=== PATIENT | female | born 1995 | race Caucasian/White ===

== ENCOUNTER 2016-09-17 06:21 | Emergency (ER) | payer OTHER ==
[2016-09-17 06:50] VITALS: BMI 21.2
--- NOTE | 2016-09-17 07:08 | PDOC ---
History of Present Illness - General Chief Complaint: Vaginal Bleeding Stated Complaint: VAGINAL BLEEDING Time Seen by Provider: 09/17/16 07:08 - History of Present Illness Initial Comments: 09/17/16 07:51 CHIEF COMPLAINT: Vaginal bleeding PCP: Dr. Devlin HISTORY OF PRESENT ILLNESS: Patient is a [id number], presented to the ED with the chief complaints of vaginal bleeding since a month and a half. A/c to the patient, she had vaginal bleeding since 2months, stopped for 2 weeks in between but have been continuously bleeding for almost 45 days. She changes 18-20 pads per day and says " the blood comes out like water" and heavy clots while passing urine. Also mentions to have supra pubic pain and lower back pain. Has been feeling very tired and weak especially the past month. Patient says she used to use Depot but used only once in January last year. Last night at home, while walking towards the sofa, she felt lightheaded, had blurring of vision blackouts and fell on the right side. Patient mentions that 20minutes after she fell, she had severe headache, 8/10 in intensity, non radiating, on/off. Denies chest pain, sob, cough, palpitation, nausea or vomiting. Bowel/Bladder habit normal. Sleep/Appetite Normal. Recent Travel: None PAST MEDICAL HISTORY: Asthma PAST SURGICAL HISTORY: As mentioned above Occupation: Works at [employer] Social History: Smoking: Denies Alcohol: Denies Drugs: Denies Family History: Allergies: Seafood. 09/17/16 11:35 Past History - Past Medical History Allergies/Adverse Reactions: Allergies Allergy/AdvReac Type Severity Reaction Status Date / Time SEAFOOD Allergy Itching Uncoded 12/03/15 09:40 Home Medications: Ambulatory Orders NK [No Known Home Medication] 12/03/15 Asthma: Yes Cancer: No Cardiac Disorders: No Diabetes: No HTN: No Seizures: No Thyroid Disease: No - Psycho/Social/Smoking Cessation Hx Anxiety: No Suicidal Ideation: No Smoking Status: No Smoking History: Never smoked Have you smoked in the past 12 months: No Number of Cigarettes Smoked Daily: 0 Hx Alcohol Use: Yes (socially) Drug/Substance Use Hx: No Substance Use Type: None Hx Substance Use Treatment: No Review of Systems - Review of Systems Able to Perform ROS?: Yes Comments:: 09/17/16 07:20 CONSTITUTIONAL: Present: generalized weakness Absent: fever, chills, diaphoresis,malaise, loss of appetite HEENT: Absent: rhinorrhea, nasal congestion, throat pain, throat swelling, difficulty swallowing, mouth swelling, ear pain, eye pain, visual Changes CARDIOVASCULAR: Absent: chest pain, syncope, palpitations, irregular heart rate, lightheadedness , peripheral edema RESPIRATORY: Absent: cough, shortness of breath, dyspnea with exertion, orthopnea, wheezing, stridor, hemoptysis GASTROINTESTINAL: Present: suprapubic pain Absent: abdominal pain, abdominal distension, nausea, vomiting, diarrhea, constipation, melena, hematochezia GENITOURINARY: Present: Vaginal bleeding Absent: dysuria, frequency, urgency, hesitancy, hematuria, flank pain, genital pain MUSCULOSKELETAL: Absent: myalgia, arthralgia, joint swelling SKIN: Absent: rash, itching, pallor HEMATOLOGIC/IMMUNOLOGIC: Absent: easy bleeding, easy bruising, lymphadenopathy, frequent infections ENDOCRINE: Absent: unexplained weight gain, unexplained weight loss, heat intolerance, cold intolerance NEUROLOGIC: Absent: headache, focal weakness or paresthesias, dizziness, unsteady gait, seizure, mental status changes, bladder or bowel incontinence PSYCHIATRIC: Absent: anxiety, depression, suicidal or homicidal ideation, hallucinations. Is the patient limited Grenadian proficient: No *Physical Exam - Vital Signs Last Vital Signs Temp Pulse Resp BP Pulse Ox 102 H 18 118/75 100 09/17/16 06:45 09/17/16 06:45 09/17/16 06:45 09/17/16 06:45 - Physical Exam Comments: 09/17/16 08:43 PE: GENERAL: Awake, alert, and fully oriented, in no acute distress HEAD: No signs of trauma EYES: PERRLA, EOMI, sclera anicteric, conjunctiva clear ENT: Auricles normal inspection, hearing grossly normal, nares patent, oropharynx clear without exudates. Moist mucosa NECK: Normal ROM, supple, no lymphadenopathy, JVD, or masses LUNGS: Breath sounds equal, clear to auscultation bilaterally. No wheezes, and no crackles.. HEART: Regular rate and rhythm, normal S1 and S2, no murmurs, rubs or gallops ABDOMEN: Soft, nontender, normoactive bowel sounds. No guarding, no rebound. No masses Pelvic exam:Vaginal bleeding from vaginal vault, no clots. EXTREMITIES: Normal range of motion, no edema. No clubbing or cyanosis. No cords, erythema, or tenderness NEUROLOGICAL: Cranial nerves II through XII grossly intact. Normal speech, normal gait SKIN: Warm, Dry, normal turgor, no rashes or lesions noted. ED Treatment Course - LABORATORY CBC & Chemistry Diagram: 09/17/16 07:47 09/17/16 07:47 Medical Decision Making - Medical Decision Making 09/17/16 07:08 Patient seen and examine at bed side. Vitals noted, tachycardic. Patient looks comfortable. Physical examination: positive for supra pubic tenderness on palpation and bleeding in vaginal vault. Will order CBC, CMP, UA, Serum test, coags, Transvaginal ultrasound and CT head IV Fluids Differential diagnosis: Dysfunctional uterine bleed; R/O polycystic ovarian disease. R/O brain hemorrahge or acute pathology s/p fall 09/17/16 8:00 Patient reassessed. No complaints 09/17/16 9:00 Labs reviewed, H/H 12.7/38.[address]-No acute pathology Transvaginal Ultrasound: Normal 09/17/16 11:40 Clinical Impression: Dysfunctional uterine bleeding Plan: Transvaginal ultrasound normal Patient advised to go to her Trade Analyst today or tomorrow for hormonal therapy and to return to the ED if symptoms persist or if symptoms get worse. I have discussed in length about the risk of her medical condition. Since H/H is normal, she is not anemic, will not prescribe her any Iron tablets. Illness, Investigation and PLan of care explained to the patient. She verbalized understanding. Case seen and examined with Dr. West. *DC/Admit/Observation/Transfer Diagnosis at time of Disposition: Dysfunctional uterine bleeding - Discharge Dispostion Disposition: HOME Condition at time of disposition: Guarded Admit: No - Patient Instructions Printed Discharge Instructions: Heavy Menstrual Bleeding Additional Instructions: Your blood work looks normal. You do not have anemia, CT head and Transvaginal ultrasound was normal. Please visit your Trade Analyst as soon as possible for further evaluation and she might give you hormonal therapy. Please return to the Emergency Department immediately if your symptoms persist or if you develop any NEW symptoms.
[2016-09-17] MEDS ORDERED: SODIUM CHLORIDE 1,000 ML IV SCH (07:45)
[2016-09-17 08:20] LABS: URINE APPEARANCE CLEAR; URINE BILIRUBIN NEGATIVE (NEGATIVE); URINE COLOR LTYELLOW; URINE GLUCOSE (UA) NEGATIVE (NEGATIVE); URINE KETONE NEGATIVE (NEGATIVE); URINE NITRITE NEGATIVE (NEGATIVE); URINE PROTEIN NEGATIVE (NEGATIVE); URINE UROBILINOGEN NEGATIVE E.U./dl (0.2-1.0)
[2016-09-17 08:22] LABS: BASOPHIL 0.4 % (0-2.0); EOSINOPHIL 1.9 % (0-4.5); MCH 29.4 pg (25.7-33.7); MCHC 32.7 g/dl (32.0-36.0); MEAN CELL VOLUME 89.9 fl (80-96); MEAN PLT VOLUME 10.8 fl (7.5-11.1); NEUTROPHILS 61.3 % (42.8-82.8); PLATELET COUNT 177 K/MM3 (134-434); RDW 13.6 % (11.6-15.6); WHITE BLOOD COUNT 6.5 K/mm3 (4.0-10.0)
[2016-09-17 08:29] LABS: URINE BLOOD 3+ (NEGATIVE); URINE LEUK ESTERASE TRACE (NEGATIVE)
[2016-09-17 08:31] LABS: URINE MUCUS MANY; URINE RBC 60 /hpf (0-3); URINE WBC 10 /hpf (3-5)
[2016-09-17 08:43] LABS: ALBUMIN 4.3 g/dl (3.4-5.0); ANION GAP 11 (8-16); BILIRUBIN,TOTAL 0.3 mg/dL (0.2-1.0); CALCIUM 9.7 mg/dL (8.5-10.1); CO2 26 mmol/L (21-32); CREATININE 0.6 mg/dL (0.55-1.02); GLUCOSE,RANDOM 92 mg/dL (74-106); SGOT/AST 11 U/L (15-37); SGPT/ALT 17 U/L (12-78); TOT PROT 7.7 g/dl (6.4-8.2)
[2016-09-17 08:44] LABS: ALK PHOS 46 U/L (45-117)
[2016-09-17 08:59] LABS: INR 1.1 (0.82-1.09); PROTHROMBIN TIME (PATIENT) 12.1 SEC (9.98-11.88)
[2016-09-17 11:40] VITALS: BP 128/73; PULSE 83; TEMP 98.3
== END 2016-09-17 12:06 | disposition home or self-care (01) ==
LOC: JER 06:21
PROC: 3E0337Z Introduction of Electrolytic and Water Balance Substance into Peripheral Vein, Percutaneous Approach (ICD-10-PCS; principal; 2016-09-17)
DX: N93.8 Other specified abnormal uterine and vaginal bleeding (principal)
CPT/HCPCS: 36415; 70450-TC; 76830-TC; 76856-TC; 80053; 81003; 81015; 84703; 85025; 85610; 86850; 86900; 86901; 99284-25

== ENCOUNTER 2017-06-13 13:09 | Emergency (ER) | payer OTHER ==
[2017-06-13 13:27] VITALS: BP 121/71; PULSE 85; TEMP 97.9; BMI 20.3
[2017-06-13 14:35] LABS: URINE APPEARANCE CLEAR; URINE BILIRUBIN NEGATIVE (NEGATIVE); URINE BLOOD NEGATIVE (NEGATIVE); URINE COLOR LTYELLOW; URINE GLUCOSE (UA) NEGATIVE (NEGATIVE); URINE KETONE NEGATIVE (NEGATIVE); URINE NITRITE NEGATIVE (NEGATIVE); URINE PROTEIN NEGATIVE (NEGATIVE); URINE UROBILINOGEN NEGATIVE mg/dL (0.2-1.0)
--- NOTE | 2017-06-13 15:17 | PDOC ---
History of Present Illness - General Chief Complaint: Headache Stated Complaint: VAGINAL PAIN Time Seen by Provider: 06/13/17 14:48 History Source: Patient Exam Limitations: No Limitations - History of Present Illness Travel History: No Initial Comments: 06/13/17 15:41 Patient came to emergency department for evaluation of chronic headache pain. had a significant injury 2 years ago with a fall and noted cervical spine herniation. has had poor response to ibuprofen for pain relief. is classic headache right sided that is related to musculoskeletal issues of her cervical spine. Also complains of lower abdominal pain and pelvic pain. has had no fever, nausea vomiting or diarrhea constipation. Denies dysuria. Denies any vaginal drainage or itching. States pain is deep and feels is more of a vaginal issue. Has taken no medication for relief of that. Last pelvic exam was greater than a year ago. Has been once, does not think is but could be. Has one partner who is asymptomatic of any drainage or lesions. Timing/Duration: reports: getting worse, changing over time Quality: reports: mild, moderate Pain Radiation: reports: no radiation, other (suprapubic) Activities at Onset: reports: none Past History - Travel Traveled outside of the country in the last 30 days: No Close contact w/someone who was outside of country & ill: No - Past Medical History Allergies/Adverse Reactions: Allergies Allergy/AdvReac Type Severity Reaction Status Date / Time No Known Drug Allergies Allergy Verified 06/13/17 16:44 SEAFOOD Allergy Itching Uncoded 12/03/15 09:40 Home Medications: Ambulatory Orders Alprazolam [Xanax] 0.25 mg PO TID PRN #6 tablet MDD 6 06/13/17 Fluconazole [Diflucan] 150 mg PO ONCE #1 tablet 06/13/17 Omeprazole 20 mg PO DAILY 06/13/17 Asthma: Yes Cancer: No Cardiac Disorders: No COPD: No DVT: No Diabetes: No GI Disorders: Yes (GERD) HTN: No Psychiatric Problems: Yes (Anxiety) Seizures: No Thyroid Disease: No - Immunization History Immunization Up to Date: Yes - Suicide/Smoking/Psychosocial Hx Smoking Status: No Smoking History: Never smoked Have you smoked in the past 12 months: No Number of Cigarettes Smoked Daily: 0 Information on smoking cessation initiated: No Hx Alcohol Use: No Drug/Substance Use Hx: No Substance Use Type: None Hx Substance Use Treatment: No Abd/GI Specific PMHX - Complaint Specific PMHX Diverticulitis: No Gall Bladder Disease: No Review of Systems - Review of Systems Able to Perform ROS?: Yes Is the patient limited Mongolian proficient: Yes Constitutional: Yes: Symptoms Reported, See HPI, Malaise. No: Fever HEENTM: Yes: See HPI. No: Symptoms Reported Respiratory: Yes: See HPI. No: Symptoms reported ABD/GI: Yes: Symptoms Reported, See HPI : Yes: Symptoms Reported, See HPI Integumentary: Yes: See HPI. No: Symptoms Reported All Other Systems: Reviewed and Negative *Physical Exam - Vital Signs Last Vital Signs Temp Pulse Resp BP Pulse Ox 97.9 F 85 16 121/71 97 06/13/17 13:21 06/13/17 13:21 06/13/17 13:21 06/13/17 13:21 06/13/17 13:21 - Physical Exam General Appearance: Yes: Nourished, Appropriately Dressed, Apparent Distress, Mild Distress HEENT: positive: BREANN, Normal ENT Inspection, TMs Normal, Pharynx Normal Neck: positive: Tender, Supple. negative: Lymphadenopathy (R), Lymphadenopathy (L) Female Pelvic Exam: positive: normal external exam, cervical os closed, normal adnexa, normal size ovaries, CMT, discharge (thick white/ non foul smelling ) Gastrointestinal/Abdominal: positive: Normal Bowel Sounds, Soft, Rebound. negative: Tender, Distended, Guarding Musculoskeletal: positive: Normal Inspection. negative: CVA Tenderness Extremity: positive: Normal Capillary Refill Integumentary: positive: Dry, Warm, Pale. negative: Normal Color Neurologic: positive: product evangelist II-XII NML intact, Fully Oriented, Alert, Normal Mood/ Affect, Normal Response, Motor Strength 5/5 ED Treatment Course - ADDITIONAL ORDERS Additional order review: Laboratory Results 06/13/17 06/13/17 14:20 14:20 Urine Color Ltyellow Urine Appearance Clear Urine pH 6.0 Ur Specific Watch[place] 1.018 Urine Protein Negative Urine Glucose (UA) Negative Urine Ketones Negative Urine Blood Negative Urine Nitrite Negative Urine Bilirubin Negative Urine Urobilinogen Negative Urine HCG, Qual Negative Progress Note - Progress Note Progress Note: With further discussion regarding treatment for anticipated STDs, patient denies knowledge or exposure to any. Discussed with treat with ceftriaxone 250mg IM for gonorrhea 1 g of by mouth Zithromax for treatment of presumed chlamydia. We will also provide one dose of Diflucan for candidiasis. But patient became tearful, quiet, with poor eye contact. With further questioning patient revealed that she has been depressed with multiple situational issues in her life this past year and became more tearful and started crying. When I asked if she felt that she might hurt herself or someone else she admitted that she had thought about it multiple times. States her mother is aware of this and wanted her to come to emergency department for evaluation. States lives alone and is not certain she is safe at home. Patient denies current lots however feels depressed and agrees to discussing this issue with her mother present with possible intervention. Medical Decision Making - Medical Decision Making 06/13/17 16:35 LENGTHY DISCUSSION with pATEINT ABD sister Jessica and Mother who have all agreed that Vero will go with sister . She states she feels safe, has agreed and contracted to discuss any recurrent feelings of suicidal ideation with family and if uncomfortable with that agrees to return to emergency department or call 911. Patient states feels much better, given 0.5 mg of by mouth Xanax and understands his to help with anxiety. Prescribed 0.25 mg of Xanax when necessary for 6 tablets. Sister and mother both agree and understand need to return immediately for any discomfort or inability to continue safe zone for Estephania. Dr. Hunter. was notified and understands this plan and will provide follow-up contacts tomorrow for patient 06/13/17 17:07 *DC/Admit/Observation/Transfer Diagnosis at time of Disposition: STD exposure, Depressed affect - Discharge Dispostion Disposition: HOME Condition at time of disposition: Stable Admit: No - Prescriptions Prescriptions: Alprazolam [Xanax] 0.25 mg PO TID PRN #6 tablet MDD 6 PRN Reason: Anxiety Fluconazole [Diflucan] 150 mg PO ONCE #1 tablet - Referrals Referrals: Rahul Gotti [Primary Care Provider] - Quang Hunter MD [Staff Physician] - - Patient Instructions Printed Discharge Instructions: Facts About Sexually Transmitted Infections, DI for Depression -- Adult Additional Instructions: You been treated today with azithromycin 1 g by mouth for treatment of chlamydia You have been treated with Rocephin 250 mg injection for treatment of gonorrhea Always use condoms with the partners Followup with SECURITY BUSINESS ANALYST in one week for reevaluation and retesting. Rest, Avoid strenous activity or exercise until symptoms resolve Avoid Alcohol or drug use May use 1 tab of Xanax 0.25mg every 8 hours for stress/ anxiety or worsen feelings Call for immediate appoinment or evaluation tomorrow with Psychiatry. If feelings of depression or thoughts of injury return , talk with Sister or Mom or call 911, return to ER. - Post Discharge Activity Forms/Work/School Notes: Back to Work - Transfer to Acute Care Facility [facility]
[2017-06-13] MEDS ORDERED: AZITHROMYCIN 1 GM PACKET PO ONE (15:38)
[2017-06-13] MEDS ORDERED: AZITHROMYCIN 500 MG TABLET ONE (15:46)
[2017-06-13] MEDS ORDERED: ALPRAZolam 0.25 MG TABLET PO PRN (16:23)
[2017-06-13] MEDS ORDERED: ALPRAZolam 0.25 MG TABLET PO STA (16:31)
[2017-06-13 20:14] LABS: URINE LEUK ESTERASE Negative (NEGATIVE)
== END 2017-06-13 17:03 | disposition home or self-care (01) ==
LOC: JERFT 13:09
DX: Z20.2 Contact with and (suspected) exposure to infections with a predominantly sexual mode of transmission (principal); F32.9 Major depressive disorder, single episode, unspecified
CPT/HCPCS: 36415; 81003; 84703; 87086; 87491; 87591; 96372; 99281-25

== ENCOUNTER 2018-03-21 20:00 | Emergency (ER) | payer OTHER ==
[2018-03-21 20:14] VITALS: BP 123/65; PULSE 143; TEMP 98.2; BMI 22.1
[2018-03-21] MEDS ORDERED: SODIUM CHLORIDE 0.9% 500 ML INFUS.BAG IV ONE (21:13)
[2018-03-21] MEDS ORDERED: LORazepam 1 MG TABLET PO ONE (21:13)
--- NOTE | 2018-03-21 21:17 | PDOC ---
History of Present Illness - General Chief Complaint: Weakness Stated Complaint: WEAKNESS Time Seen by Provider: 03/21/18 20:50 History Source: Patient Exam Limitations: No Limitations - History of Present Illness Initial Comments: 03/21/18 21:17 Patient is a 23 year old female h/o anxiety c/o numbness and tingling generalized since this evening. She started feeling cramps in her right face and spread to become generally all over her body intermittently which started about 7 PM tonight. States that she is medications for anxiety and based on the advise of her doctor not to drink and take the meds, she did not take he meds today because she she intended to go to a [employer] and to have drinks. States she had 6 beers and smoked hooka. Endorsed prior symptoms of the same 1 month ago. Denies SI or HI. LMP 02/16/18. PMD: Dr. Romero PMHX: as above PSOCHX: occ etoh, neg cig, neg drug ALL: NKDA GENERAL/CONSTITUTIONAL: [No fever or chills. No weakness. No weight change.] HEAD, EYES, EARS, NOSE AND THROAT: [No change in vision. No ear pain or discharge. No sore throat.] CARDIOVASCULAR: [No chest pain or shortness of breath.] RESPIRATORY: [No cough, wheezing, or hemoptysis.] GASTROINTESTINAL: [No nausea, vomiting, diarrhea or constipation. No rectal bleeding.] GENITOURINARY: [No dysuria, frequency, or change in urination.] MUSCULOSKELETAL: [No joint or muscle swelling or pain. No neck or back pain.] SKIN AND BREASTS: [No rash or easy bruising.] NEUROLOGIC: [No headache, vertigo, loss of consciousness, or loss of sensation.] PSYCHIATRIC: [No depression (+) anxiety.] ENDOCRINE: [No increased thirst. No abnormal weight change.] HEMATOLOGIC/LYMPHATIC: [No anemia, easy bleeding, or history of blood clots.] ALLERGIC/IMMUNOLOGIC: [No hives or skin allergy. No latex allergy.] GENERAL: [The patient is awake, alert, and fully oriented, in mild distress.] HEAD: [Normal with no signs of trauma.] EYES: [Pupils equal, round and reactive to light, extraocular movements intact, sclera anicteric, conjunctiva clear.] ENT: [Ears normal, nares patent, oropharynx clear without exudates. Moist mucous membranes.] NECK: [Normal range of motion, supple without lymphadenopathy, JVD, or masses.] LUNGS: [Breath sounds equal, clear to auscultation bilaterally. No wheezes, and no crackles.] HEART: [tachycardic rate and rhythm, normal S1 and S2 without murmur, rub.] ABDOMEN: [Soft, nontender, normoactive bowel sounds. No guarding, no rebound. No masses.] EXTREMITIES: [Normal range of motion, no edema. No clubbing or cyanosis. No cords, erythema, or tenderness.] NEUROLOGICAL: [Cranial nerves II through XII grossly intact. Normal speech, normal gait, cerebellar function intact, nl heal to patel, and finger to nose] PSYCH: [anxious mood, normal affect.] SKIN: [Warm, Dry, normal turgor, no rashes or lesions noted.] Past History - Past Medical History Allergies/Adverse Reactions: Allergies Allergy/AdvReac Type Severity Reaction Status Date / Time No Known Drug Allergies Allergy Verified 03/21/18 20:14 SEAFOOD Allergy Itching Uncoded 03/21/18 20:14 Home Medications: Ambulatory Orders Alprazolam [Xanax] 0.25 mg PO TID PRN #6 tablet MDD 6 06/13/17 Fluconazole [Diflucan] 150 mg PO ONCE #1 tablet 06/13/17 Omeprazole 20 mg PO DAILY 06/13/17 Ondansetron [Zofran Odt -] 4 mg SL TID #12 od.tablet 07/02/17 Asthma: Yes Cancer: No Cardiac Disorders: No COPD: No DVT: No Diabetes: No GI Disorders: Yes (GERD) HTN: No Psychiatric Problems: Yes (Anxiety, panic attacks) Seizures: No Thyroid Disease: No - Immunization History Immunization Up to Date: Yes - Suicide/Smoking/Psychosocial Hx Smoking Status: No Smoking History: Never smoked Have you smoked in the past 12 months: No Number of Cigarettes Smoked Daily: 0 Information on smoking cessation initiated: No Hx Alcohol Use: No Drug/Substance Use Hx: No Substance Use Type: None Hx Substance Use Treatment: No *Physical Exam - Vital Signs Last Vital Signs Temp Pulse Resp BP Pulse Ox 98.2 F 143 H 18 123/65 100 03/21/18 20:12 03/21/18 20:12 03/21/18 20:12 03/21/18 20:12 03/21/18 20:12 Medical Decision Making - Medical Decision Making 03/21/18 21:17 Patient is a 23 year old female h/o anxiety c/o numbness and tingling generalized since this evening. She started feeling cramps in her right face and spread to become generally all over her body intermittently which started about 7 PM tonight.l labs, IVF ekg, ativan 1 mg po reassess 03/21/18 22:42 RN went to look for the patient was not in bed assumed to have eloped. *DC/Admit/Observation/Transfer Diagnosis at time of Disposition: Anxiety - Discharge Dispostion Disposition: ELOPED - Referrals Referrals: Rahul Gotti [Primary Care Provider] - - Patient Instructions - Post Discharge Activity
--- NOTE | 2018-03-21 22:31 | PDOC ---
*Physical Exam - Vital Signs Last Vital Signs Temp Pulse Resp BP Pulse Ox 98.2 F 143 H 18 123/65 99 03/21/18 20:12 03/21/18 20:12 03/21/18 20:12 03/21/18 20:12 03/21/18 20:30 Medical Decision Making - Medical Decision Making 03/21/18 22:28 The patient was seen and evaluated in conjunction with midlevel provider under my direct supervision, ancillary studies were reviewed. I agree with the plan as outlined by GILLIAN Harrison 23 YOF with feeling weird and anxious, after attending [employer]; off meds VS notable for tachycardia, but no fevers. however, prior to evaluation and labs/EKG and repeat VS, pt eloped prior to full examination and evaluation. thus, pt was not seen or evaluated by me and left prior. *DC/Admit/Observation/Transfer Diagnosis at time of Disposition: Anxiety - Discharge Dispostion Disposition: ELOPED - Referrals Referrals: Rahul Gotti [Primary Care Provider] - - Patient Instructions - Post Discharge Activity
== END 2018-03-21 22:51 | disposition left against medical advice (07) ==
LOC: JER 20:00
DX: F41.9 Anxiety disorder, unspecified (principal); F41.0 Panic disorder [episodic paroxysmal anxiety]
CPT/HCPCS: 99283-25

== ENCOUNTER 2018-04-13 16:22 | Emergency (ER) | payer SELFPAY ==
--- NOTE | 2018-04-13 17:23 | PDOC ---
Rapid Medical Evaluation Time Seen by Provider: 04/13/18 17:17 Medical Evaluation: Allergies Allergy/AdvReac Type Severity Reaction Status Date / Time No Known Drug Allergies Allergy Verified 03/21/18 20:14 SEAFOOD Allergy Itching Uncoded 03/21/18 20:14 04/13/18 17:23 I have performed a brief in-person evaluation of this patient. The patient presents with a chief complaint of: h/o GERD presenting with a month h/o epigastric pain with N/V with blood tinged vomiting since yesterday. LMP 02/19/18. missed menses this month Pertinent physical exam findings: mild epigastric tenderness. no rebound or gaurding I have ordered the following: UA. Ucx. hcg The patient will proceed to the ED for further evaluation. 04/13/18 17:26 Discharge Disposition - Diagnosis Epigastric abdominal pain - Referrals Referrals: Rahul Gotti [Primary Care Provider] - - Patient Instructions - Post Discharge Activity
[2018-04-13 17:25] VITALS: BMI 19.5
[2018-04-13] MEDS ORDERED: BISMUTH SUBSALICYLATE 262 MG/15 ML BTL PO ONE (17:59)
[2018-04-13] MEDS ORDERED: LIDOCAINE VISCOUS 2% ORAL/TOP 100 ML BOTTLE MM ONE (17:59)
[2018-04-13] MEDS ORDERED: ONDANSETRON *ODT* 4 MG TABLET SL ONE (17:59)
[2018-04-13] MEDS ORDERED: MAG HYDROX/AL HYDROX/SIMETH 30 ML UNIT-DOSE CUP PO ONE (17:59)
[2018-04-13 18:34] LABS: BASO % 0.5 % (0-2.0); EOS % 1.7 % (0-4.5); HEMOGLOBIN 12.7 GM/dL (10.7-15.3); LYMPH % 35.2 % (8-40); MCH 29.5 pg (25.7-33.7); MCHC 32.6 g/dl (32.0-36.0); MEAN CELL VOLUME 90.6 fl (80-96); MEAN PLT VOLUME 11.1 fl (7.5-11.1); NEUT % 56.6 % (42.8-82.8); PLATELET COUNT 172 K/MM3 (134-434); RDW 13.3 % (11.6-15.6); WHITE BLOOD COUNT 6.5 K/mm3 (4.0-10.0)
[2018-04-13 18:37] LABS: URINE APPEARANCE CLEAR; URINE BILIRUBIN NEGATIVE (<2.0 mg/dL); URINE COLOR YELLOW; URINE GLUCOSE (UA) NEGATIVE (NEGATIVE); URINE KETONE NEGATIVE (NEGATIVE); URINE LEUK ESTERASE TRACE (NEGATIVE); URINE NITRITE NEGATIVE (NEGATIVE); URINE PROTEIN NEGATIVE (NEGATIVE); URINE UROBILINOGEN NEGATIVE mg/dL (0.2-1.0)
[2018-04-13 18:40] LABS: HCG,QUALITATIVE URINE Negative
[2018-04-13 18:50] LABS: EPI CELLS RARE /HPF (FEW); URINE MUCUS MANY
--- NOTE | 2018-04-13 19:08 | PDOC ---
Attending Attestation - Resident Resident Name: GironJairon - ED Attending Attestation I have performed the following: I have examined & evaluated the patient, The case was reviewed & discussed with the resident, I agree w/resident's findings & plan - HPI HPI: 04/13/18 19:03 23 YOF with h/o GERD, gastritis, H pylori infection s/p triple cocktail treatment in Jul 2017, presenting with a month h/o acute on chronic epigastric pain with N/V with blood tinged vomiting since yesterday. LMP 02/19/18. +vaginal spotting x 2 weeks. no vaginal discharge or pelvic pain. denies triggers or precipitants. - Physicial Exam PE: 04/13/18 19:08 NAD, well appearing, MMM, nl conjunctiva, anicteric; neck supple. lungs clear, RRR, abdomen soft +epigastric tenderness, no rebound or guarding. neg Sebastian's sign. right shoulder/upper thoracic TTP, ROM preserved.. DOLAN x4, no focal neuro deficits. No peripheral edema. normal color for ethnicity, WWP. 04/16/18 07:02 - Medical Decision Making 04/13/18 19:08 23 YOF with h/o GERD, gastritis, H pylori infection s/p triple cocktail treatment in Jul 2017, presenting with a month h/o acute on chronic epigastric pain with N/V with blood tinged vomiting since yesterday. LMP 02/19/18. +vaginal spotting x 2 weeks. no vaginal discharge or pelvic pain. denies triggers or precipitants. POCUS biliary exam for AP, views: GB long and short, CBD; findings: +contracted gallbladder, no gallstones, no sono sebastian's, no pericholecystic fluid or GB wall thickening. normal CBD <3cm. impression: no acute findings. labs and lytes wnl. neg preg test given GI cocktail with improvement. doubt acute intra abdominal pathology or GB pathology/biliary obstruction DC with GI followup, as she has h/o gastritis and H pylori infection. avoid triggers and monitor food inatke, avoid spicy foods/coffee/fatty foods and NSAIDS. pt verbalized understanding of impression and plan, discharge in stable condition, return precautions discussed. 04/13/18 20:04 04/16/18 07:02
[2018-04-13 19:10] LABS: ALK PHOS 53 U/L (45-117); ANION GAP 11 MMOL/L (8-16); BILIRUBIN,TOTAL 0.2 mg/dL (0.2-1); BLOOD UREA NITROGEN 21 mg/dL (7-18); CALCIUM 9.7 mg/dL (8.5-10.1); CHLORIDE 106 mmol/L (98-107); CO2 24 mmol/L (21-32); CREATININE 0.8 mg/dL (0.55-1.3); GLUCOSE,RANDOM 80 mg/dL (74-106); LIPASE 93 U/L (73-393); SGOT/AST 12 U/L (15-37); SGPT/ALT 19 U/L (13-61); SODIUM 141 mmol/L (136-145); TOT PROT 7.6 g/dl (6.4-8.2)
[2018-04-13 20:12] VITALS: BP 101/64; PULSE 78
--- NOTE | 2018-04-13 20:12 | PDOC ---
History of Present Illness - General Chief Complaint: Nausea/Vomiting Stated Complaint: ABD PAIN Time Seen by Provider: 04/13/18 17:17 Past History - Past Medical History Allergies/Adverse Reactions: Allergies Allergy/AdvReac Type Severity Reaction Status Date / Time No Known Drug Allergies Allergy Verified 04/13/18 17:18 SEAFOOD Allergy Itching Uncoded 04/13/18 17:18 Home Medications: Ambulatory Orders Omeprazole 40 mg PO DAILY 06/13/17 Asthma: Yes Cancer: No Cardiac Disorders: No COPD: No DVT: No Diabetes: No GI Disorders: Yes (GERD) HTN: No Psychiatric Problems: Yes (Anxiety, panic attacks) Seizures: No Thyroid Disease: No - Immunization History Immunization Up to Date: Yes - Suicide/Smoking/Psychosocial Hx Smoking Status: No Smoking History: Never smoked Have you smoked in the past 12 months: No Number of Cigarettes Smoked Daily: 0 Information on smoking cessation initiated: No Hx Alcohol Use: No Drug/Substance Use Hx: No Substance Use Type: None Hx Substance Use Treatment: No Abd/GI Specific PMHX - Complaint Specific PMHX Diverticulitis: No Gall Bladder Disease: No *Physical Exam - Vital Signs Last Vital Signs Temp Pulse Resp BP Pulse Ox 99.8 F H 114 H 18 137/77 99 04/13/18 17:19 04/13/18 17:19 04/13/18 17:19 04/13/18 17:19 04/13/18 17:19 ED Treatment Course - LABORATORY CBC & Chemistry Diagram: 04/13/18 18:25 04/13/18 18:25 - ADDITIONAL ORDERS Additional order review: Laboratory Results 04/13/18 04/13/18 04/13/18 18:25 18:25 18:18 Sodium 141 Potassium 4.0 Chloride 106 Carbon Dioxide 24 Anion Gap 11 BUN 21 H Creatinine 0.8 Creat Clearance w eGFR > 60 Random Glucose 80 Calcium 9.7 Total Bilirubin 0.2 AST 12 L ALT 19 Alkaline Phosphatase 53 Total Protein 7.6 Albumin 4.0 Lipase 93 Beta HCG, Quant < 1.0 Urine Color Yellow Urine Appearance Clear Urine pH 6.0 Ur Specific [place] 1.025 Urine Protein Negative Urine Glucose (UA) Negative Urine Ketones Negative Urine Blood Negative Urine Nitrite Negative Urine Bilirubin Negative Urine Urobilinogen Negative Ur Leukocyte Esterase Trace Urine WBC (Auto) 1 Urine RBC (Auto) 1 Ur Epithelial Cells Rare Urine Mucus Many Urine HCG, Qual Negative 04/13/18 18:25 RBC 4.30 MCV 90.6 MCHC 32.6 RDW 13.3 MPV 11.1 Neutrophils % 56.6 D Lymphocytes % 35.2 D Monocytes % 6.0 D Eosinophils % 1.7 D Basophils % 0.5 - Medications Given in the ED: ED Medications Discontinued Medications Generic Name Dose Route Start Last Admin Trade Name Gloria PRN Reason Stop Dose Admin Al Hydroxide/Mg Hydroxide 30 ml 04/13/18 17:59 04/13/18 19:13 Mylanta Oral Suspension - PO 04/13/18 18:00 30 ml ONCE ONE Administration Bismuth Subsalicylate 30 ml 04/13/18 17:59 04/13/18 19:13 Pepto-Bismol Liquid - PO 04/13/18 18:00 30 ml ONCE ONE Administration Lidocaine HCl 15 ml 04/13/18 17:59 04/13/18 19:15 Xylocaine 2% Viscous MM 04/13/18 18:00 15 ml ONCE ONE Administration Ondansetron HCl 4 mg 04/13/18 17:59 04/13/18 19:12 Zofran Odt - SL 04/13/18 18:00 4 mg ONCE ONE Administration *DC/Admit/Observation/Transfer Diagnosis at time of Disposition: Epigastric abdominal pain - Discharge Dispostion Disposition: HOME Condition at time of disposition: Good Decision to Admit order: No - Referrals Referrals: Rahul Gotti [Primary Care Provider] - Mary Robbins DO [Staff Physician] - - Patient Instructions Printed Discharge Instructions: DI for Vomiting -- Adult, DI for Gastroesophageal Reflux Disease (GERD) Additional Instructions: Your labs were normal today. You are not . I have attached a copy of your results to this packet. You should continue to take your Omeprazole as previously prescribed. Additionally, you can try over the counter Maalox. Take as directed on the package insert. Follow up with your primary care physician within the next 3-4 days. You will need to call to make an appointment. The number is included in this packet. I have also entered a referral for Dr. Robbins, a GI doctor. You may also follow up with his clinic. You will need to call to make an appointment. Go to the nearest emergency department if your condition worsens or you feel like you need additional emergency evaluation. Print Language: CZECH - Post Discharge Activity
[2018-04-13 20:39] VITALS: TEMP 98.8
== END 2018-04-13 20:40 | disposition home or self-care (01) ==
LOC: JER 16:22
DX: K21.9 Gastro-esophageal reflux disease without esophagitis (principal); J45.909 Unspecified asthma, uncomplicated; F41.0 Panic disorder [episodic paroxysmal anxiety]; F41.9 Anxiety disorder, unspecified; Z91.013 Allergy to seafood
CPT/HCPCS: 36415; 80053; 81003; 81015; 83690; 84702; 84703; 85025; 87086; 99283-25; Q0162